=== PATIENT | male | born 1955 | race Caucasian/White ===

== ENCOUNTER → 2024-01-30 01:54 | Outpatient (CLI) | payer MEDICARE, SELFPAY ==
--- NOTE | 2024-01-30 | DI.US_ITS ---
Exam(s) US CAROTID EXAM: US CAROTID CLINICAL HISTORY: HTN, HYPERLIPIDEMIA, SCREENING. TECHNIQUE: Ultrasound carotids performed using grayscale, color-flow, and spectral Doppler imaging. COMPARISON: US US AAA SCREENING from 01/30/2024 FINDINGS: CAROTID ARTERIES: There is no significant plaque seen on either side and no elevated velocities. VERTEBRAL ARTERIES: Antegrade flow demonstrated in both vertebral arteries.. Measurements: R Bulb: 61.3cm/s PS / 19.7cm/s ED R CCA: 70.3cm/s PS / 21.5cm/s ED R ECA: 92.6cm/s PS / 13cm/s ED R ICA Prox: 62.7cm/s PS / 26.6cm/s ED R ICA Mid: 79.5cm/s PS / 38.1cm/s ED R ICA Distal: 72.9cm/s PS /31.6cm/s ED R Vert: 43.4cm/s PS / 16.8cm/s ED R SVR: 1.1 R DVR: 1.8 L Bulb: 51.6cm/s PS / 18.2cm/s ED L CCA: 62.4cm/s PS / 21.5cm/s ED L ECA: 81.8cm/s PS / 15.7cm/s ED L ICA Prox: 89.5cm/s PS / 35cm/s ED L ICA Mid: 81.1cm/s PS / 36cm/s ED L ICA Distal: 70.7cm/s PS / 30.5cm/s ED L Vert: 53.7cm/s PS / 16.1cm/s ED L SVR: 1.4 L DVR: 1.6 IMPRESSION: No evidence for hemodynamically significant carotid artery stenosis in the neck. Both vertebral arteries are patent and exhibit antegrade flow. Criteria for Carotid Stenosis: Normal: ICA PSV <125 cm/s no plaque or intimal thickening is visible. <50% stenosis: ICA PSV <125 cm/s and plaque or intimal thickening is visible. 50-69% stenosis: ICA PSV is 125-250 cm/s and plaque is visible. >70% stenosis to near occlusion: ICA PSV >250 cm/s with visible plaque and luminal narrowing. DATA REPOSITORY:
--- NOTE | 2024-01-30 | DI.US_ITS ---
Exam(s) US AAA SCREENING EXAM: US AAA SCREENING CLINICAL HISTORY: HTN, HYPERLIPIDEMIA, SCREENING COMPARISON: US US CAROTID BILAT from 02/07/2018 FINDINGS: There is no evidence of abdominal aortic aneurysm. The abdominal aorta exhibits maximum diameter of 2.3 cm, proximally. Minimal plaque. It exhibits normal tapering distally. The visualized common il iac arteries also exhibit upper normal diameters. IMPRESSION: No evidence of abdominal aortic aneurysm. DATA REPOSITORY:
[2024-01-30 09:54] LABS: ALT 35 U/L (16-63); AST 25 U/L (15-37); Albumin 4.2 g/dL (3.4-5.0); Alkaline Phosphatase 56 U/L (46-116); Anion Gap 7.1 mmol/L (3-11); BUN 21 mg/dL (7-18); Bilirubin, Total 1.76 mg/dL (0.2-1.0); CO2 28.9 mmol/L (21.0-32.0); CREATININE 1.1 mg/dL (0.70-1.30); Calcium 9.5 mg/dL (8.5-10.1); Calculated LDL 116 mg/dL (<100); Chloride 108 mmol/L (98-107); Cholesterol 215 mg/dL (<200); Estimated GFR 72.67 (mL/min/1.73m2); Glucose 109 mg/dL (74-106); HDL Cholesterol 89 mg/dL (40-60); Sodium 144 mmol/L (136-145); Total Protein 7.7 g/dL (6.4-8.2); Triglyceride 54 mg/dL (<150)
[2024-01-30 19:19] LABS: PSA, Screening 3.1 ng/mL (<=4.5)
== END ==
PROVIDERS: PCP Internal Medicine; Visit Provider Internal Medicine
DX: I10 Essential (primary) hypertension (principal); E78.5 Hyperlipidemia, unspecified; Z13.6 Encounter for screening for cardiovascular disorders; Z12.5 Encounter for screening for malignant neoplasm of prostate; Z13.89 Encounter for screening for other disorder
CPT/HCPCS: 36415; 76706; 80053; 80061; 84153; 93880